=== PATIENT | male | born 1975 | race Caucasian/White ===

== ENCOUNTER 2017-11-29 16:20 | Emergency (ER) | payer OTHER ==
[~2017-11-29] VITALS: Ht 180.3 cm; Wt 100.0 kg
[2017-11-29 16:39] VITALS: TEMP 36.3; Ht 180.3 cm; Wt 100.0 kg
[2017-11-29] MEDS ORDERED: ONDANSETRON INJ 2 MG/ML 2 ML VIAL IV STA (16:49)
[2017-11-29] MEDS ORDERED: MoRPHine SULFATE 10 MG/ML CARP/VIAL IV STA (16:49)
[2017-11-29] MEDS ORDERED: DEXAMETHASONE INJ 10 MG in SYRINGE 0 ML IV STA ×2 (16:49→21:38)
[2017-11-29] MEDS ORDERED: KETOROLAC TROMETHAMINE 30 MG/ML VIAL IV STA (16:49)
[2017-11-29] MEDS ORDERED: ROSU20TA PO (16:54)
[2017-11-29] MEDS ORDERED: CHOL135C6 PO (16:56)
[2017-11-29] MEDS ORDERED: DEXAMETHASONE **PF** INJ 10 MG/ML VIAL ONE ×2 (17:16→21:44)
[2017-11-29] MEDS ORDERED: HYDROmorphone INJ 1 MG/ML SYR IV STA (17:51)
[2017-11-29] MEDS ORDERED: LORAZEPAM 2 MG/ML 1 ML VIAL IV STA (19:50)
--- NOTE | 2017-11-29 21:03 | DIAGNOSTIC IMAGING REPORT ---
LUMBAR SPINE W/O CONTRAST CLINICAL HISTORY: 42 years-old Male presenting with Low back pain with right radiculopathy/right leg numbness, severe pain radiating down the right leg, numbness in the right foot, no history of surgery or cancer. TECHNIQUE: Multisequence, multiplanar MR imaging of the lumbar spine was performed without the use of intravenous contrast. IV contrast: None. COMPARISON: None. FINDINGS: Localizer images: Unremarkable. For purposes of numbering, the last full intervertebral disc space is considered the L5-S1 level. The levels are numbered as on the images for reference. Normal lumbar lordosis. Vertebral bodies maintain normal height, alignment, and bone marrow signal intensity. Intervertebral disc desiccation focally at L4-5. At this level there is a paracentral right disc protrusion resulting in an extruded disc fragment that has migrated caudally. The extruded disc fragment measures 12 mm transverse x 6 mm AP by approximately 10 mm CC. This results in significant effacement of the right lateral recess at L5 below the right L4-5 neural foramen. Mass effect on the transiting right L5 nerve root noted. The remaining levels demonstrate widely patent neural foramina and no spinal canal narrowing. No other sites of mass effect on the nerve roots identified. The spinal cord is in good position at the superior endplate of L1 cauda equina normal morphology. Paraspinal soft tissues within normal limits. IMPRESSION: Disc protrusion at L4-5 with caudal migration and resultant mass effect on the transiting right L5 nerve root. Electronically signed by: Mann Ybarra M.D. 11/29/2017 9:01 PM Dictated Date/Time: 11/29/2017 8:56 PM
--- NOTE | 2017-11-29 21:55 | EMERGENCY ROOM VISIT NOTE ---
ED Visit Note First contact with patient: 16:41 CHIEF COMPLAINT: Low back pain HISTORY OF PRESENT ILLNESS: This 42-year-old male presents to ER with chief complaint of severe low back pain and a burning sensation in his right buttocks , groin and down his right leg. The patient states his right foot is numb. The patient states that he bent over today at work and felt a "popping sensation in my back". The patient states that he was seen by Dr. Yarbrough in [place] for his back in the past. The patient denies any back surgeries. The patient states that he has a herniated disc at the L5-S1 level. The patient currently denies any urinary symptoms. The patient denies any loss of bowel or bladder control. The patient does admit that the pain radiates into his testicles. The patient denies any saddle anesthesia. Patient has not taken anything for pain. REVIEW OF SYSTEMS: 6 system review was performed and was negative unless stated otherwise in history of present illness. PMH: The patient is healthy; prior L5-S1 disc herniation, hyperlipidemia, neck surgery, optic ulcer disease, knee surgery SOCIAL HISTORY: Patient lives with his family. The patient denies any tobacco use but admits to occasional alcohol use. PHYSICAL EXAM: Vital Signs normal: Reviewed Nurse's notes and agree. GENERAL: 42-year-old white male appears very uncomfortable secondary to pain. He refuses to lie on the stretcher secondary to the pain. MENTAL STATUS: Alert and oriented 3 LUMBAR SPINE: No gross bony abnormality noted. Patient is nontender to palpation over the spinous processes. He is tender to palpation over the right paravertebral region, left side nontender. Limited range of motion in all directions secondary to pain.. Muscle strength is 5 out of 5 bilateral lower extremities and symmetrical. NEURO: Patient is able to heel and toe walk without difficulty. Bilateral patellar and Achilles reflexes are 2+. Sensation is intact to pinprick bilateral lower extremities. Positive straight leg raise on the right. EMERGENCY DEPARTMENT COURSE: The patient was evaluated. IV access was obtained. The patient was given Decadron 10 mg IV, Toradol 30 mg IV, morphine 8 mg IV and Zofran 4 mg IV push. The patient was reevaluated and was feeling better. He was now able to lie on the stretcher. The patient was reevaluated again and stated the pain was coming back therefore he was given Dilaudid 1 mg IV. The patient was once again reevaluated and stated his pain was down to a 3. I got the patient up to stand and he was in severe pain going from a supine position to a sitting position. I was able to get him up and he was able to walk a few steps with assistance. It was very painful. An MRI of the lumbar spine was then ordered. Patient stated that he gets slightly claustrophobic therefore he was given 0.5 mg of Ativan prior to the MRI. DIAGNOSTICS:LUMBAR SPINE W/O CONTRAST CLINICAL HISTORY: 42 years-old Male presenting with Low back pain with right radiculopathy/right leg numbness, severe pain radiating down the right leg, numbness in the right foot, no history of surgery or cancer. TECHNIQUE: Multisequence, multiplanar MR imaging of the lumbar spine was performed without the use of intravenous contrast. IV contrast: None. COMPARISON: None. FINDINGS: Localizer images: Unremarkable. For purposes of numbering, the last full intervertebral disc space is considered the L5-S1 level. The levels are numbered as on the images for reference. Normal lumbar lordosis. Vertebral bodies maintain normal height, alignment, and bone marrow signal intensity. Intervertebral disc desiccation focally at L4-5. At this level there is a paracentral right disc protrusion resulting in an extruded disc fragment that has migrated caudally. The extruded disc fragment measures 12 mm transverse x 6 mm AP by approximately 10 mm CC. This results in significant effacement of the right lateral recess at L5 below the right L4-5 neural foramen. Mass effect on the transiting right L5 nerve root noted. The remaining levels demonstrate widely patent neural foramina and no spinal canal narrowing. No other sites of mass effect on the nerve roots identified. The spinal cord is in good position at the superior endplate of L1 cauda equina normal morphology. Paraspinal soft tissues within normal limits. IMPRESSION: Disc protrusion at L4-5 with caudal migration and resultant mass effect on the transiting right L5 nerve root. Electronically signed by: Mann Ybarra M.D. 11/29/2017 9:01 PM The patient was informed of the findings. The patient requests Dr. Aly. Both Dr. 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 I told the patient and I will inform him about your request for Dr. Aly. I consulted Dr. Hernández about the patient. He stated that Dr. Aly is out of town until Tuesday and that his surgery schedule is booked for the next 2 days. He states the best thing would be to have the patient discharged to home on pain medication and have him follow-up with Dr. Aly but if he any uncontrolled pain in the interim he can contact either Dr. Aly or himself. He also stated to give the patient an additional 10 mg of Decadron IV. This was given to the patient. I also discussed the treatment plan with the patient and he is in agreement. The patient was discharged home in stable condition with his driving. He was given an OxyIR home pack. DIAGNOSIS: Extruded lumbar disc herniation L5 DISCHARGE INSTRUCTIONS AND TREATMENT: Tylenol 650 mg every 4-6 hours as needed for pain. Take OxyIR as needed for more severe pain. Do not drive while taking the OxyIR. Start taking the Medrol Dosepak tomorrow. Also recommend high-fiber diet and take MiraLAX or stool softener daily. Call Dr. Aly's office tomorrow to schedule a follow-up appointment on Tuesday. If you experience any uncontrolled pain, loss of bowel or bladder control. Numbness and urogenital region, return to the ER. Current/Historical Medications Scheduled Choline Fenofibrate (Trilipix), 135 MG PO DAILY Rosuvastatin Calcium (Crestor), 20 MG PO DAILY Allergies Coded Allergies: Azithromycin (Verified Allergy, Intermediate, HIVES, 11/29/17) Uncoded Allergies: PENICILLIN (Allergy, Intermediate, HIVES, 11/29/17) Vital Signs Date Time Temp Pulse Resp B/P (MAP) Pulse Ox O2 Delivery O2 Flow Rate FiO2 11/29/17 17:57 64 18 114/62 95 Room Air 11/29/17 16:47 146/87 11/29/17 16:39 36.3 96 22 98 Room Air Medications Administered Medications (Trade) Dose Ordered Sig/Madhu Route Start Time Stop Time Status Last Admin Dose Admin Ketorolac Tromethamine (Toradol Inj) 30 mg NOW STAT IV 11/29/17 16:49 11/29/17 16:52 DC 11/29/17 17:05 30 MG Morphine Sulfate (MoRPHine SULFATE INJ) 8 mg NOW STAT IV 11/29/17 16:49 11/29/17 16:52 DC 11/29/17 17:05 8 MG Ondansetron HCl (Zofran Inj) 4 mg NOW STAT IV 11/29/17 16:49 11/29/17 16:52 DC 11/29/17 17:05 4 MG Dexamethasone Sodium Phosphate (Dexamethasone Inj Pf) 10 mg STK-MED ONCE .ROUTE 11/29/17 17:16 11/29/17 17:17 DC 11/29/17 17:16 10 MG Hydromorphone HCl (Dilaudid Inj) 1 mg NOW STAT IV 11/29/17 17:51 11/29/17 17:52 DC 11/29/17 17:51 1 MG Lorazepam (Ativan Inj) 0.5 mg NOW STAT IV 11/29/17 19:50 11/29/17 19:52 DC 11/29/17 19:55 0.5 MG Departure Information Referrals Florian Winslow M.D. (PCP) Patient Instructions [facility]
[2017-11-29] MEDS ORDERED: OXYC1TAB3 PO (21:57)
[2017-11-29] MEDS ORDERED: METH4PAK PO (21:57)
[2017-11-29] MEDS ORDERED: OXYCODONE IR HOME PACK PO ONE (22:00)
[2017-11-29 22:14] VITALS: BP 126/68; PULSE 68; O2SAT 96
== END 2017-11-29 22:14 | disposition home or self-care (01) ==
LOC: C.EDB 16:22 → C.EDD 22:14
DX: M51.27 Other intervertebral disc displacement, lumbosacral region (principal); E78.5 Hyperlipidemia, unspecified; Z79.899 Other long term (current) drug therapy; Z88.1 Allergy status to other antibiotic agents; Z88.0 Allergy status to penicillin

== ENCOUNTER 2017-12-09 07:20 | Day surgery (SDC) | payer OTHER ==
[~2017-12-09] VITALS: Ht 180.3 cm; Wt 99.1 kg
[~2017-12-09 07:20] MED LIST: CHOL135C6 PO; CLINDAMYCIN 600 MG/54 ML D5W IV SCH; HYDR-5688 PO; LACTATED RINGER'S 1000ML 1,000 ML IV SCH; ROSU20TA PO
[2017-12-09 07:36] VITALS: Ht 180.3 cm; Wt 99.1 kg
--- NOTE | 2017-12-09 07:49 | History and Physical ---
History & Physical Date Dec 09, 2017. Chief Complaint Back and right leg pain History of Present Illness The patient is a 42 year old male with complaints of back and right leg pain Additional History Hepatic Disease: No Endocrine Disorder: No Kidney Disease: No Hypertension: No Heart Disease: No Bleeding Tendencies: No Infectious Diseases: No Allergies Coded Allergies: Azithromycin (Verified Allergy, Intermediate, HIVES, 12/07/17) Uncoded Allergies: PENICILLIN (Allergy, Intermediate, HIVES, 11/29/17) Home Medications Scheduled Choline Fenofibrate (Trilipix), 135 MG PO QAM Rosuvastatin Calcium (Crestor), 20 MG PO QAM Scheduled PRN Hydrocodone/Acetaminophen 5MG/325MG (Keller 5MG/325MG), 1-2 TABLET PO Q6 PRN for Pain Physical Examination Skin: warm/dry, no rash Eyes: normal inspection, EOMI, sclerae normal ENT: normal ENT inspection, pharynx normal Head: normocephalic, atraumatic Neck: supple, no adenopathy, trachea midline Respiratory/Chest: lungs clear, normal breath sounds, no respiratory distress Cardiovascular: regular rate, rhythm, no edema, no murmur Abdomen / GI: normal bowel sounds, non tender Back: normal inspection Extremities: normal inspection, normal range of motion Neurologic/Psych: no motor/sensory deficits, alert, normal reflexes, oriented x 3 Diagnosis Herniated nucleus pulposus L5-S1 on the right Plan of Treatment Microdiscectomy L5-S1 on the right
--- NOTE | 2017-12-09 07:49 | History & Physical Bridge Note ---
H&P Re-Evaluation Bridge Note: I have examined the patient, reviewed the History & Physical and in the interval since the performance of the History & Physical I have noted the following changes of clinical significance: No changes noted
[2017-12-09] MEDS ORDERED: ONDANSETRON INJ 2 MG/ML 2 ML VIAL IV PRN ×2 (08:15→10:00)
[2017-12-09] MEDS ORDERED: ATROPINE SULFATE 0.1 MG/ML 5ML SYR IV PRN ×2 (08:15→10:00)
[2017-12-09] MEDS ORDERED: HYDROmorphone INJ 2 MG/ML SYR/VIAL IV PRN ×3 (08:15→11:00)
[2017-12-09 08:16] VITALS: BP 129/54; PULSE 54; TEMP 36.8; O2SAT 99
[2017-12-09] MEDS ORDERED: FENTANYL CITRATE INJ 50 MCG/1 ML 2 ML VIAL ONE ×2 (08:40→10:08)
[2017-12-09] MEDS ORDERED: MIDAZOLAM HCL 1 MG/ML 2ML VIAL ONE (08:40)
[2017-12-09] MEDS ORDERED: BUPIVACAINE/EPINEPHRINE 0.5% MPF 1:200,000 30 ML VIAL ONE (09:39)
[2017-12-09] MEDS ORDERED: BACITRACIN 50000 UNIT VIAL ONE ×2 (09:39)
[2017-12-09] MEDS ORDERED: LABETALOL HCL IV 5 MG/ML 20ML IV PRN (10:00)
[2017-12-09] MEDS ORDERED: HYDROmorphone INJ 2 MG/ML SYR/VIAL ONE (10:08)
[2017-12-09] MEDS ORDERED: KETOROLAC TROMETHAMINE 30 MG/ML VIAL ONE (10:18)
[2017-12-09] MEDS ORDERED: GLYCOPYRROLATE INJ 0.2 MG/ML VIAL ONE (10:18)
[2017-12-09] MEDS ORDERED: ONDANSETRON INJ 2 MG/ML 2 ML VIAL ONE (10:18)
[2017-12-09] MEDS ORDERED: LARYING-O-JET KIT (LTA) ONE (10:18)
[2017-12-09] MEDS ORDERED: NEOSTIGMINE METHYLSULFATE 1 MG/ML 10ML VIAL ONE (10:18)
[2017-12-09] MEDS ORDERED: DEXAMETHASONE SOD INJ 4 MG/ML VIAL ONE (10:18)
[2017-12-09] MEDS ORDERED: LIDOCAINE HCL 2% 2 ML VIAL (20MG/ML) ONE (10:18)
[2017-12-09] MEDS ORDERED: ROCURONIUM BROMIDE 10 MG/ML 5 ML VIAL IV ONE (10:18)
[2017-12-09] MEDS ORDERED: PROPOFOL IV EMULSION 10 MG/ML 20 ML VIAL IV ONE (10:18)
--- NOTE | 2017-12-09 10:38 | [facility] Operative Report ---
Operative Report Operative Date Dec 09, 2017. Pre-Operative Diagnosis Herniated Nucleus Pulposus L5-S1, on right. Post-Operative Diagnosis Same Procedure(s) Performed Right L5-S1 Microdiscectomy Surgeon Dr. Preet Aly Vice President Of Customer Service Surgeon(s) Fred Virgen PA-C Estimated Blood Loss 5mL Findings Herniated free fragment Specimens none, per Surgeon Anesthesia Type General Description of Procedure Patient was met with preoperatively case discussed all questions addressed. After informed consent obtained patient was taken to the operative suite underwent intubation and placed in a prone position the Severiano table on top of the Dre frame. All bony prominences well-padded I suspected to ensure no external pressure placed upon them. This point the lumbar spine was prepped and draped in normal sterile fashion. With the assistance of fluoroscopy identified the 51 disc space. We will acknowledge lumbarization of the proximal sacrum. Sharp dissection the assistance of Bovie cautery was performed onto an exposing the interlaminar space L5-S1 right. Suffered in retractors placed. Then performed a small laminotomy excising lateral portion of the ligamentum flavum and medial facet. I exposed a severely compressed traversing S1 nerve root. This was mobilized medially and a massive fragment of herniated free fragment identified and removed. The area was explored to ensure all fragment addressed. It was free of all compression. Incision was then copious irrigated and closed with 1 Vicryl fascia 2-0 Vicryl subcutaneous case E4 0 Monocryl for final skin closure Steri-Strips dressings placed. Patient with continued PACU stable condition. Please note Fred Virgen present at the entire procedure involved in patient positioning complex portions of the surgery and final skin closure. I attest to the content of the Intraoperative Record and any orders documented therein. Any exceptions are noted below.
[2017-12-09] MEDS ORDERED: HYDR-5688 PO (10:39)
--- NOTE | 2017-12-09 10:40 | Discharge Instructions ---
Discharge Instructions Date of Service Dec 09, 2017. Admission Reason for Admission: Spinal Stenosis Discharge Discharge Diagnosis / Problem: herniated disk Discharge Goals Goal(s): Improve function Activity Recommendations Activity Limitations: per Instructions/Follow-up section . Instructions / Follow-Up Instructions / Follow-Up ACTIVITY RECOMMENDATIONS: SELF CARE INSTRUCTIONS AFTER A LAMINECTOMY 1. No prolonged sitting (less than 30 minutes for the first 3 weeks after surgery). 2. No bending, lifting more than 5 pounds, or twisting (roll like a log when turning in bed). 3. You may shower 3 days after surgery if no drainage from wound. Thoroughly dry wound. Do not soak in the tub. 4. Please walk as much as you can for exercise. Gradually increase the distance that you walk as your endurance increases. 5. You may drive in 7-10 days if you are comfortable and no longer requiring pain medications. SPECIAL CARE INSTRUCTIONS: VERY IMPORTANT TO READ AND REVIEW A. Your surgical incision has been closed with a cosmetic suture under the skin that will dissolve in about 6 weeks. In 14 days, you can use a pair of clean scissors and cut the suture that is left outside of the skin at the ends of your incision. B. Complications are uncommon, but please contact us if you have any signs or symptoms of: 1. wound infection (fever higher than 102.5 degrees F, redness, separation of wound, drainage, or increasing pain from the incision) 2. blood clots in legs (pain, swelling, redness and warmth in legs) 3. urinary tract infection (fever higher than 102.5 degrees, burning upon urination or increased frequency of urination) 4. nerve problems (inability to walk on your toes or heels, numbness, loss of bowel or bladder control) 5. any other symptoms that concern you. C. Please call the office at if you have any concerns or questions about your operation or recovery. MANAGING PAIN AFTER SPINAL SURGERY 1. Narcotic medication is intended for short-term use and will be provided for surgical pain. Surgical pain usually lasts for a period of 4-6 weeks. Narcotic medication includes Percocet, Vicodin, Darvocet, Tylenol #3 or Lortab. 2. Longer-term pain is more appropriately treated with non-narcotic medication such as Tylenol ES. 3. Muscle spasm is not appropriately treated with narcotics. Muscle relaxers such as Soma, Flexeril or Skelaxin can be used along with Tylenol ES. 4. Remember that we all live with some "aches and pains". This is not unusual or uncommon after an injury or as we get older. 5. We will provide appropriate medication within the normal guidelines of their prescribed use. We will also be very cautious and aware of potential abuse and extended duration of patients' medication needs. 6. Please allow 2-3 days to process refills. Prescriptions will not be mailed but must be picked up at the office. FOLLOW UP VISIT: Keep your scheduled follow-up appointment. Any questions, please call the office at . Current Hospital Diet Patient's current hospital diet: Discharge Diet Recommended Diet: Regular Diet Procedures Procedures Performed: Right L5-S1 Microdiscectomy Pending Studies Studies pending at discharge: no Medical Emergencies . Who to Call and When: Medical Emergencies: If at any time you feel your situation is an emergency, please call 911 immediately. . Non-Emergent Contact Non-Emergency issues call your: Primary Care Provider . "Provider Documentation" section prepared by Preet Aly. . VTE Core Measure Inpt VTE Proph given/why not?: Cricket Espinal, SCD's
[2017-12-09] MEDS ORDERED: ACETAMINOPHEN 325 MG TAB PO PRN (10:45)
[2017-12-09] MEDS ORDERED: KETOROLAC TROMETHAMINE 30 MG/ML VIAL IV. PRN (10:45)
[2017-12-09] MEDS ORDERED: OXYCODONE HCL IR 5 MG TAB (IMMEDIATE RELEASE) PO PRN (10:45)
[2017-12-09] MEDS ORDERED: HYDROmorphone INJ 1 MG/ML SYR IV PRN (10:45)
--- NOTE | 2017-12-09 10:52 | DIAGNOSTIC IMAGING REPORT ---
LUMBAR SPINE, INTRAOPERATIVE FLUOROSCOPY HISTORY: L5-S1 microdiscectomy. FLUOROSCOPY TIME: 7 seconds. FINDINGS: Intraoperative fluoroscopy was provided for the lumbar spine. A single fluoroscopic spot image of the lower lumbar spine. There are surgical instruments posterior to the L5 level. IMPRESSION: Fluoroscopy provided for a L5-S1 microdiscectomy. Electronically signed by: Altaf Marrero M.D. 12/09/2017 10:51 AM Dictated Date/Time: 12/09/2017 10:50 AM
[2017-12-09 12:00] VITALS: BP 135/82; PULSE 62; TEMP 36.4; O2SAT 100
--- NOTE | 2017-12-09 13:44 | Anesthesiology Progress Note ---
Anesthesia Post Op Note Date & Time Dec 09, 2017 at 13:44 Vital Signs Pain Intensity: 4.0 Vital Signs Past 12 Hours Date Time Temp Pulse Resp B/P (MAP) Pulse Ox O2 Delivery O2 Flow Rate FiO2 12/09/17 12:00 36.4 62 20 135/82 100 Room Air 12/09/17 11:30 36.4 64 20 131/78 100 Room Air 12/09/17 11:25 36.4 61 20 121/77 98 Room Air 12/09/17 11:15 62 16 133/88 94 Room Air 12/09/17 11:05 62 14 127/80 100 Oxymask 10 12/09/17 10:55 66 21 149/78 100 Oxymask 10 12/09/17 10:49 36.4 74 17 147/85 100 Oxymask 10 12/09/17 08:16 36.8 54 18 129/54 (79) 99 Room Air Notes Mental Status: alert / awake / arousable, participated in evaluation Pt Amnestic to Procedure: Yes Nausea / Vomiting: adequately controlled Pain: adequately controlled Airway Patency, RR, SpO2: stable & adequate BP & HR: stable & adequate Hydration State: stable & adequate Anesthetic Complications: no major complications apparent
== END 2017-12-09 12:45 | disposition home or self-care (01) ==
LOC: C.ACU 07:20
PROVIDERS: ATTEND Orthopaedic Surgery Orthopaedic Surgery of the Spine
DX: M51.27 Other intervertebral disc displacement, lumbosacral region (principal); E78.00 Pure hypercholesterolemia, unspecified; Z88.0 Allergy status to penicillin; Z88.1 Allergy status to other antibiotic agents; E78.5 Hyperlipidemia, unspecified